=== PATIENT | female | born 1960 | race Caucasian/White ===

== ENCOUNTER 2022-05-14 11:29 | Inpatient (IN) | payer MEDICARE, MEDICAID ==
[~2022-05-14] VITALS: Ht 160 cm; Wt 78.9 kg
[~2022-05-14 11:29] MED LIST: CLON0.5T4 PO; DIVA500T51; LEVO50TA8; LIP40 PO; LITHTAB PO; METF-414 PO; METR500T MT; NYST15CR33 TP; ZIPR40CA2 PO
[2022-05-14] MEDS ORDERED: VANCOMYCIN 1G PREMIX 200 ML IV ONE (12:15)
[2022-05-14] MEDS ORDERED: MEROPENEM 1,000 MG in SODIUM CHLORIDE 0.9% 100 ML IV ONE (12:15)
[2022-05-14] MEDS ORDERED: SODIUM CHLORIDE 0.9% 1000ML BAG (SEPSIS BOLUS) IV ONE (12:15)
[2022-05-14 13:13] LABS: BG BASE EXCESS -7.8 mmol/L (-2.0-2.0); BG CARBOXYHEMOGLOBIN 0.8 % (0.5-1.5); BG DEOXYHEMOGLOBIN 8.4 % (0.0-5.0); BG FRACTION INSPIRED OXYGEN 21; BG HCO3 ACT 14.8 mmol/L (22.0-26.0); BG METHEMOGLOBIN 0.4 % (0.0-1.5); BG OXYGEN SATURATION 91.5 % (92.0-98.5); BG OXYHEMOGLOBIN 90.4 % (94.0-97.0); BG PCO2 24.4 mmHg (35.0-45.0); BG PH 7.402 (7.350-7.450); BG PO2 59.2 mmHg (75.0-100.0); BG SAMPLE SITE RIGHT RADIAL; BG TOTAL HEMOGLOBIN 14.8 g/dL (12.0-18.0); BG VENT MODE ROOM AIR
[2022-05-14 13:18] LABS: HEMATOCRIT. 37.7 % (36.0-48.0); HEMOGLOBIN. 12.9 g/dL (12.0-16.0); MEAN CORPUSCULAR HEMOGLOBIN 31.2 pg (28.0-32.0); MEAN CORPUSCULAR VOLUME 90.9 fL (81.0-99.0); MEAN PLATELET VOLUME 10.6 fl (7.4-10.4); PLATELET 96 x1000/uL (130-400); RED BLOOD CELL COUNT 4.14 mill/uL (4.2-5.4); RED CELL DISTRIBUTION WIDTH 14.5 % (11.6-14.6)
[2022-05-14 13:21] LABS: CLARITY URINE CLOUDY (CLEAR); COLOR URINE DARK YELLOW (YELLOW); KETONES URINE TRACE (NEGATIVE); LEUKOCYTE ESTERASE URINE TRACE (NEGATIVE); NITRITE URINE NEGATIVE (NEGATIVE); OCCULT BLOOD URINE 3+ (NEGATIVE); PH URINE 5.5 (4.5-8.0); PROTEIN URINE 4+ (NEGATIVE)
[2022-05-14 13:30] LABS: INR 1.1; PROTHROMBIN TIME 12.2 sec (9.6-11.0)
[2022-05-14 13:54] LABS: PLATELET ESTIMATE DECREASED
[2022-05-14] MEDS ORDERED: ACETAMINOPHEN 325MG TABLET PO NR ×2 (14:45→16:45)
[2022-05-14 14:46] LABS: *AMPHETAMINES SCREEN URINE NEGATIVE (NEGATIVE); *BARBITURATES SCREEN URINE NEGATIVE (NEGATIVE); *BENZODIAZEPINES SCREEN URINE NEGATIVE (NEGATIVE); *COCAINE SCREEN URINE NEGATIVE (NEGATIVE); CANNABINOID URINE SCREEN PRESUMTIVE POSITIVE (NEGATIVE); METHADONE URINE SCREEN NEGATIVE (NEGATIVE); OPIATES URINE SCREEN NEGATIVE (NEGATIVE); PHENCYCLIDINE URINE SCREEN NEGATIVE (NEGATIVE)
[2022-05-14] MEDS ORDERED: DOXYCYCLINE 100MG in DEXTROSE 5% WATER 100ML IV NR (15:15)
[2022-05-14] MEDS ORDERED: DOXYCYCLINE HYCLATE 100 MG/VIAL IV ONE (15:15)
[2022-05-14] MEDS: SODIUM CHLORIDE 0.9% 1,000 ML IV SCH (17:15)
[2022-05-14] MEDS ORDERED: KETOROLAC 15MG/ML VIAL IV PRN (17:15)
[2022-05-14] MEDS ORDERED: ZOLPIDEM TARTRATE 5MG TABLET PO PRN (17:15)
[2022-05-14] MEDS ORDERED: DEXTROSE 50% WATER 50ML SYRINGE IV PRN (17:15)
[2022-05-14] MEDS ORDERED: NOREPINEPHRINE 8 MG in DEXT 5% WATER 242 ML IV PRN (17:15)
[2022-05-14] MEDS ORDERED: ENOXAPARIN 40MG/0.4ML SYR SUBCUT SCH (17:15)
[2022-05-14] MEDS ORDERED: GUAIFENESIN 200MG/10ML SUGAR FREE UDC PO PRN (17:15)
[2022-05-14] MEDS ORDERED: DOCUSATE SODIUM 100MG CAPSULE PO PRN (17:15)
[2022-05-14] MEDS ORDERED: CLONIDINE 0.1MG TABLET PO PRN (17:15)
[2022-05-14] MEDS ORDERED: IPRATROPIUM/ALBUTEROL 0.5-3(2.5)MG/3ML NEB NEB PRN (17:15)
[2022-05-14] MEDS ORDERED: ONDANSETRON HCL 4MG/2ML INJ IV PRN (17:15)
[2022-05-14] MEDS ORDERED: MAGNESIUM/ALUMINUM HYDROXIDE/SIMETHICONE 30ML UDC PO PRN (17:15)
[2022-05-14] MEDS ORDERED: NITROGLYCERIN 0.4MG TABLET SL SL PRN (17:15)
[2022-05-14 17:56] LABS: CHLORIDE 105 mEq/L (98-107)
[2022-05-14 18:16] LABS: ETHANOL BLOOD < 10 mg/dL; HDL CHOLESTEROL 11 mg/dL (40-59); LDL CHOLESTEROL 43 mg/dL (5-100); T4 FREE 1.12 ng/dL (0.76-1.46); TOTAL IRON BINDING CAPACITY 144 ug/dL (250-450)
[2022-05-14 18:27] LABS: BETA HYDROXYBUTYRATE 3.3 mMol/L (0.0-0.3)
[2022-05-14 18:54] LABS: FOLIC ACID (FOLATE) SERUM > 20.00 ng/mL (>5.38); VITAMIN B12 SERUM > 2000.0 pg/mL (211-911)
[2022-05-14 19:02] LABS: CREATINE KINASE 19118 IU/L (26-192)
[2022-05-14] MEDS ORDERED: VANCOMYCIN 500MG PREMIX 100 ML IV NR (19:15)
[2022-05-14] MEDS: INSULIN LISPRO 100 UNITS/ML SUBCUT SCH (20:46)
[2022-05-14] MEDS: BLOOD SUGAR DIAGNOSTIC STRIP TEST SCH (21:00)
[2022-05-14] MEDS: ASCORBIC ACID 500 MG TABLET PO SCH (21:30)
[2022-05-14] MEDS: ENOXAPARIN 30MG/0.3ML SYR SUBCUT SCH (21:30)
[2022-05-14] MEDS: FAMOTIDINE 20MG TABLET PO SCH (21:30)
[2022-05-14] MEDS: MEROPENEM 1,000 MG in SODIUM CHLORIDE 0.9% 100 ML IV SCH (21:46)
[2022-05-14] MEDS ORDERED: KCL 20MEQ/100ML PREMIX 100 ML IV NR (22:30)
[2022-05-14 23:21] VITALS: BP 141/62
[2022-05-14 23:30] VITALS: BP 141/62
[2022-05-15] VITALS (12 sets, daily range): BP systolic 101–159; BP diastolic 47–71
[2022-05-15] MEDS: INSULIN LISPRO 100 UNITS/ML SUBCUT SCH ×5 (00:09→20:53)
[2022-05-15] MEDS: INSULIN GLARGINE 100 UNITS/ML SUBCUT SCH ×2 (00:09→22:36)
[2022-05-15] MEDS: SODIUM CHLORIDE 0.9% 1,000 ML IV SCH ×3 (00:10→18:11)
[2022-05-15] MEDS: KCL 20MEQ/100ML PREMIX 100 ML IV NR ×2 (00:11→01:51)
[2022-05-15 02:55] LABS: CREATINE KINASE MB FRACTION 19.1 ng/mL (0.5-3.6)
[2022-05-15] MEDS: ACETAMINOPHEN 325MG TABLET PO PRN ×2 (05:19→20:54)
[2022-05-15 06:07] LABS: CHLORIDE 112 mEq/L (98-107)
[2022-05-15 06:36] LABS: CREATINE KINASE MB FRACTION 14.1 ng/mL (0.5-3.6); PHOSPHORUS 3.3 mg/dL (2.5-4.9)
[2022-05-15] MEDS: BLOOD SUGAR DIAGNOSTIC STRIP TEST SCH ×4 (07:30→20:53)
[2022-05-15 07:36] LABS: HEMATOCRIT. 34.6 % (36.0-48.0); MEAN CORPUSCULAR HEMOGLOBIN 31.8 pg (28.0-32.0); MEAN CORPUSCULAR VOLUME 91.9 fL (81.0-99.0); RED BLOOD CELL COUNT 3.76 mill/uL (4.2-5.4); RED CELL DISTRIBUTION WIDTH 14.8 % (11.6-14.6)
[2022-05-15 07:48] LABS: CREATINE KINASE 17445 IU/L (26-192)
[2022-05-15] MEDS ORDERED: ALBUTEROL (0.083%) 2.5MG/3ML NEB HHN PRN (08:30)
[2022-05-15] MEDS ORDERED: IPRATROPIUM BROMIDE (0.02%) 0.5MG/2.5ML NEB HHN PRN (08:30)
[2022-05-15] MEDS: ASPIRIN 325MG EC TABLET PO SCH (08:50)
[2022-05-15] MEDS: ASCORBIC ACID 500 MG TABLET PO SCH ×2 (08:50→20:53)
[2022-05-15] MEDS: ZINC SULFATE 220 MG ( 50 ) CAPSULE PO SCH (08:50)
[2022-05-15 08:57] LABS: BG BASE EXCESS -9.7 mmol/L (-2.0-2.0); BG CARBOXYHEMOGLOBIN 0.3 % (0.5-1.5); BG DEOXYHEMOGLOBIN 5.1 % (0.0-5.0); BG FRACTION INSPIRED OXYGEN 34; BG HCO3 ACT 14.6 mmol/L (22.0-26.0); BG METHEMOGLOBIN 0.1 % (0.0-1.5); BG OXYGEN SATURATION 94.9 % (92.0-98.5); BG OXYHEMOGLOBIN 94.5 % (94.0-97.0); BG PCO2 27.4 mmHg (35.0-45.0); BG PH 7.343 (7.350-7.450); BG PO2 78.5 mmHg (75.0-100.0); BG SAMPLE SITE RIGHT RADIAL; BG TOTAL HEMOGLOBIN 12.1 g/dL (12.0-18.0); BG VENT MODE NASAL CANNULA
[2022-05-15] MEDS: MEROPENEM 1,000 MG in SODIUM CHLORIDE 0.9% 100 ML IV SCH ×2 (11:28→22:35)
[2022-05-15 18:07] LABS: MEAN PLATELET VOLUME 13.1 fl (7.4-10.4); PLATELET 109 x1000/uL (130-400); PLATELET ESTIMATE DECREASED
[2022-05-15] MEDS: FAMOTIDINE 20MG TABLET PO SCH (20:53)
[2022-05-15] MEDS: ENOXAPARIN 30MG/0.3ML SYR SUBCUT SCH (20:53)
[2022-05-16] VITALS (12 sets, daily range): BP systolic 81–148; BP diastolic 35–71
[2022-05-16] MEDS: SODIUM CHLORIDE 0.9% 1,000 ML IV SCH (00:05)
[2022-05-16] MEDS: BLOOD SUGAR DIAGNOSTIC STRIP TEST SCH ×4 (07:30→20:50)
[2022-05-16 07:58] LABS: HEMATOCRIT. 31.7 % (36.0-48.0); HEMOGLOBIN. 10.9 g/dL (12.0-16.0); MEAN CORPUSCULAR HEMOGLOBIN 31.9 pg (28.0-32.0); MEAN CORPUSCULAR VOLUME 92.5 fL (81.0-99.0); MEAN PLATELET VOLUME 10.6 fl (7.4-10.4); PLATELET 93 x1000/uL (130-400); RED BLOOD CELL COUNT 3.42 mill/uL (4.2-5.4); RED CELL DISTRIBUTION WIDTH 15.4 % (11.6-14.6)
[2022-05-16] MEDS: INSULIN LISPRO 100 UNITS/ML SUBCUT SCH ×4 (08:00→20:51)
[2022-05-16 08:37] LABS: CHLORIDE 112 mEq/L (98-107)
[2022-05-16 09:28] LABS: PHOSPHORUS 4.7 mg/dL (2.5-4.9)
[2022-05-16] MEDS ORDERED: FUROSEMIDE 40MG/4ML VIAL IVP NR (09:45)
[2022-05-16 09:59] LABS: CREATINE KINASE 16885 IU/L (26-192)
[2022-05-16] MEDS: ASCORBIC ACID 500 MG TABLET PO SCH ×2 (10:25→20:50)
[2022-05-16] MEDS: MEROPENEM 1,000 MG in SODIUM CHLORIDE 0.9% 100 ML IV SCH ×2 (10:25→20:49)
[2022-05-16] MEDS: ASPIRIN 325MG EC TABLET PO SCH (10:25)
[2022-05-16] MEDS: ZINC SULFATE 220 MG ( 50 ) CAPSULE PO SCH (10:25)
[2022-05-16] MEDS ORDERED: VANCOMYCIN 1G PREMIX 200 ML IV NR (12:00)
[2022-05-16] MEDS: SODIUM BICARBONATE 75 MEQ in SODIUM CHLORIDE 0.45% 1,000 ML IV SCH ×2 (13:16→22:13)
[2022-05-16 20:43] LABS: PLATELET ESTIMATE DECREASED
[2022-05-16] MEDS: ENOXAPARIN 30MG/0.3ML SYR SUBCUT SCH (20:49)
[2022-05-16] MEDS: FAMOTIDINE 20MG TABLET PO SCH (20:50)
[2022-05-16] MEDS: ACETAMINOPHEN 325MG TABLET PO PRN (20:50)
[2022-05-16 21:33] LABS: BG BASE EXCESS -6.3 mmol/L (-2.0-2.0); BG CARBOXYHEMOGLOBIN 0.3 % (0.5-1.5); BG DEOXYHEMOGLOBIN 7.1 % (0.0-5.0); BG FRACTION INSPIRED OXYGEN 36; BG METHEMOGLOBIN 0.5 % (0.0-1.5); BG OXYGEN SATURATION 92.8 % (92.0-98.5); BG OXYHEMOGLOBIN 92.1 % (94.0-97.0); BG PH 7.416 (7.350-7.450); BG PO2 64.6 mmHg (75.0-100.0); BG SAMPLE SITE RIGHT RADIAL; BG TOTAL HEMOGLOBIN 11.5 g/dL (12.0-18.0); BG VENT MODE NASAL CANNULA
[2022-05-16] MEDS: INSULIN GLARGINE 100 UNITS/ML SUBCUT SCH (22:18)
[2022-05-17] VITALS (55 sets, daily range): BP systolic 72–152; BP diastolic 48–135
[2022-05-17] MEDS: IPRATROPIUM BROMIDE (0.02%) 0.5MG/2.5ML NEB HHN SCH ×2 (01:03→08:46)
[2022-05-17] MEDS: ACETYLCYSTEINE 200MG/ML 20% VIAL 4ML INH SCH ×2 (01:04→08:46)
[2022-05-17] MEDS: BLOOD SUGAR DIAGNOSTIC STRIP TEST SCH ×4 (06:30→21:27)
[2022-05-17] MEDS: INSULIN LISPRO 100 UNITS/ML SUBCUT SCH ×4 (07:00→21:00)
[2022-05-17] MEDS: ACETAMINOPHEN 325MG TABLET PO PRN ×4 (08:21→22:33)
[2022-05-17] MEDS: ASCORBIC ACID 500 MG TABLET PO SCH ×2 (08:25→21:25)
[2022-05-17] MEDS: ZINC SULFATE 220 MG ( 50 ) CAPSULE PO SCH (08:25)
[2022-05-17] MEDS: ASPIRIN 325MG EC TABLET PO SCH (08:25)
[2022-05-17] MEDS: MEROPENEM 1,000 MG in SODIUM CHLORIDE 0.9% 100 ML IV SCH ×4 (09:28→21:31)
[2022-05-17 13:04] LABS: BG BASE EXCESS -5.3 mmol/L (-2.0-2.0); BG CARBOXYHEMOGLOBIN 0.3 % (0.5-1.5); BG DEOXYHEMOGLOBIN 7.6 % (0.0-5.0); BG FRACTION INSPIRED OXYGEN 36; BG HCO3 ACT 18.6 mmol/L (22.0-26.0); BG METHEMOGLOBIN 0.3 % (0.0-1.5); BG OXYGEN SATURATION 92.4 % (92.0-98.5); BG OXYHEMOGLOBIN 91.8 % (94.0-97.0); BG PCO2 31.1 mmHg (35.0-45.0); BG PH 7.395 (7.350-7.450); BG PO2 66.6 mmHg (75.0-100.0); BG SAMPLE SITE RIGHT RADIAL; BG TOTAL HEMOGLOBIN 11.6 g/dL (12.0-18.0); BG VENT MODE NASAL CANNULA
[2022-05-17] MEDS ORDERED: SODIUM CHLORIDE 10% FOR INH 15ML VIAL NEB INH NR (14:00)
[2022-05-17] MEDS ORDERED: IPRATROPIUM/ALBUTEROL 0.5-3(2.5)MG/3ML NEB HHN PRN ×2 (14:00→14:15)
[2022-05-17 15:54] LABS: BASOPHILS % 0.3 % (0.0-2.0); EOSINOPHILS % 0.1 % (0.0-5.0); HEMATOCRIT. 34.2 % (36.0-48.0); HEMOGLOBIN. 11.4 g/dL (12.0-16.0); MEAN CORPUSCULAR HEMOGLOBIN 31.5 pg (28.0-32.0); MEAN CORPUSCULAR VOLUME 94.3 fL (81.0-99.0); MEAN PLATELET VOLUME 9.7 fl (7.4-10.4); MONOCYTES % 1.8 % (2.0-8.0); NEUTROPHILS % 87.8 % (40.0-76.0); PLATELET 103 x1000/uL (130-400); RED BLOOD CELL COUNT 3.62 mill/uL (4.2-5.4); RED CELL DISTRIBUTION WIDTH 15.8 % (11.6-14.6)
[2022-05-17] MEDS: DOXYCYCLINE 100 MG in DEXT 5% WATER 100 ML IV SCH (15:59)
[2022-05-17] MEDS: ALBUTEROL (0.083%) 2.5MG/3ML NEB HHN SCH ×3 (16:08→23:52)
[2022-05-17] MEDS: ACETYLCYSTEINE 200MG/ML 20% VIAL 10ML INH SCH ×2 (16:08→23:52)
[2022-05-17 16:11] LABS: CHLORIDE 111 mEq/L (98-107)
[2022-05-17 16:18] LABS: PHOSPHORUS 3.1 mg/dL (2.5-4.9)
[2022-05-17] MEDS: SODIUM BICARBONATE 75 MEQ in SODIUM CHLORIDE 0.45% 1,000 ML IV SCH (16:42)
[2022-05-17] MEDS: FAMOTIDINE 20MG TABLET PO SCH (21:25)
[2022-05-17] MEDS: ENOXAPARIN 30MG/0.3ML SYR SUBCUT SCH (21:27)
[2022-05-17] MEDS: INSULIN GLARGINE 100 UNITS/ML SUBCUT SCH (21:28)
[2022-05-17] MEDS: MEROPENEM 500MG in NORMAL SALINE 50ML IV SCH (21:33)
[2022-05-18] VITALS (64 sets, daily range): BP systolic 81–158; BP diastolic 45–129
[2022-05-18] MEDS: ACETAMINOPHEN 325MG TABLET PO PRN ×3 (03:02→20:14)
[2022-05-18] MEDS: DOXYCYCLINE 100 MG in DEXT 5% WATER 100 ML IV SCH ×2 (03:02→14:28)
[2022-05-18] MEDS: ALBUTEROL (0.083%) 2.5MG/3ML NEB HHN SCH ×6 (03:52→23:54)
[2022-05-18 05:28] LABS: BASOPHILS % 0.2 % (0.0-2.0); EOSINOPHILS % 0.6 % (0.0-5.0); HEMATOCRIT. 28.1 % (36.0-48.0); HEMOGLOBIN. 9.6 g/dL (12.0-16.0); LYMPHOCYTES % 8.9 % (20.0-50.0); MEAN CORPUSCULAR HEMOGLOBIN 31.3 pg (28.0-32.0); MEAN PLATELET VOLUME 9.9 fl (7.4-10.4); MONOCYTES % 1.4 % (2.0-8.0); NEUTROPHILS % 88.9 % (40.0-76.0); PLATELET 117 x1000/uL (130-400); RED BLOOD CELL COUNT 3.06 mill/uL (4.2-5.4); RED CELL DISTRIBUTION WIDTH 15.2 % (11.6-14.6)
[2022-05-18 05:34] LABS: CHLORIDE 111 mEq/L (98-107)
[2022-05-18 05:49] LABS: PHOSPHORUS 3.1 mg/dL (2.5-4.9)
[2022-05-18] MEDS: BLOOD SUGAR DIAGNOSTIC STRIP TEST SCH ×4 (05:53→20:16)
[2022-05-18] MEDS: INSULIN LISPRO 100 UNITS/ML SUBCUT SCH ×4 (06:06→20:16)
[2022-05-18] MEDS: SODIUM BICARBONATE 75 MEQ in SODIUM CHLORIDE 0.45% 1,000 ML IV SCH ×3 (06:14→17:13)
[2022-05-18] MEDS: ASPIRIN 325MG EC TABLET PO SCH (08:40)
[2022-05-18] MEDS: MEROPENEM 500MG in NORMAL SALINE 50ML IV SCH ×2 (08:40→20:14)
[2022-05-18] MEDS: ASCORBIC ACID 500 MG TABLET PO SCH ×2 (08:40→20:15)
[2022-05-18] MEDS: ZINC SULFATE 220 MG ( 50 ) CAPSULE PO SCH (08:40)
[2022-05-18 09:07] LABS: BG BASE EXCESS -1.9 mmol/L (-2.0-2.0); BG CARBOXYHEMOGLOBIN 0.3 % (0.5-1.5); BG DEOXYHEMOGLOBIN 4.3 % (0.0-5.0); BG FRACTION INSPIRED OXYGEN 40; BG HCO3 ACT 21.9 mmol/L (22.0-26.0); BG METHEMOGLOBIN 0.4 % (0.0-1.5); BG OXYGEN SATURATION 95.7 % (92.0-98.5); BG PCO2 33.7 mmHg (35.0-45.0); BG PH 7.431 (7.350-7.450); BG PO2 80.9 mmHg (75.0-100.0); BG SAMPLE SITE RIGHT RADIAL; BG TOTAL HEMOGLOBIN 9.4 g/dL (12.0-18.0); BG VENT MODE COOL AEROSOL
[2022-05-18 10:06] LABS: IMMUNOGLOBULIN A 156 mg/dL (87-352); IMMUNOGLOBULIN G 718 mg/dL (586-1602); IMMUNOGLOBULIN M 115 mg/dL (26-217)
[2022-05-18] MEDS ORDERED: POTASSIUM CHLORIDE 20MEQ TABLET SR PO NR (20:15)
[2022-05-18] MEDS: FAMOTIDINE 20MG TABLET PO SCH (20:15)
[2022-05-18] MEDS: ENOXAPARIN 30MG/0.3ML SYR SUBCUT SCH (20:15)
[2022-05-18] MEDS: INSULIN GLARGINE 100 UNITS/ML SUBCUT SCH (21:34)
[2022-05-18] MEDS: ACETYLCYSTEINE 200MG/ML 20% VIAL 10ML INH SCH (23:53)
[2022-05-19] VITALS (51 sets, daily range): BP systolic 98–154; BP diastolic 49–97
[2022-05-19] MEDS: DOXYCYCLINE 100 MG in DEXT 5% WATER 100 ML IV SCH ×2 (01:30→15:18)
[2022-05-19] MEDS: SODIUM BICARBONATE 75 MEQ in SODIUM CHLORIDE 0.45% 1,000 ML IV SCH (02:52)
[2022-05-19] MEDS: ACETAMINOPHEN 325MG TABLET PO PRN (03:57)
[2022-05-19] MEDS: ALBUTEROL (0.083%) 2.5MG/3ML NEB HHN SCH ×5 (04:13→20:00)
[2022-05-19 05:50] LABS: BASOPHILS % 0.2 % (0.0-2.0); EOSINOPHILS % 2.8 % (0.0-5.0); HEMATOCRIT. 33.8 % (36.0-48.0); HEMOGLOBIN. 11.3 g/dL (12.0-16.0); MEAN CORPUSCULAR HEMOGLOBIN 31.8 pg (28.0-32.0); MEAN CORPUSCULAR VOLUME 95.3 fL (81.0-99.0); MONOCYTES % 2.4 % (2.0-8.0); NEUTROPHILS % 83.6 % (40.0-76.0); RED BLOOD CELL COUNT 3.55 mill/uL (4.2-5.4)
[2022-05-19] MEDS: BLOOD SUGAR DIAGNOSTIC STRIP TEST SCH ×4 (06:30→21:00)
[2022-05-19 06:53] LABS: PHOSPHORUS 2.6 mg/dL (2.5-4.9)
[2022-05-19] MEDS: INSULIN LISPRO 100 UNITS/ML SUBCUT SCH ×4 (07:00→21:06)
[2022-05-19] MEDS: ACETYLCYSTEINE 200MG/ML 20% VIAL 10ML INH SCH ×3 (08:13→22:00)
[2022-05-19] MEDS: MEROPENEM 500MG in NORMAL SALINE 50ML IV SCH ×2 (09:32→21:07)
[2022-05-19] MEDS: ASCORBIC ACID 500 MG TABLET PO SCH ×2 (09:32→21:07)
[2022-05-19] MEDS: ASPIRIN 325MG EC TABLET PO SCH (09:33)
[2022-05-19] MEDS: ZINC SULFATE 220 MG ( 50 ) CAPSULE PO SCH (09:33)
[2022-05-19 11:34] LABS: MEAN PLATELET VOLUME 11.3 fl (7.4-10.4); PLATELET 131 x1000/uL (130-400)
[2022-05-19 11:35] LABS: PLATELET ESTIMATE SLIGHTLY DECREASED
[2022-05-19] MEDS: SODIUM CHLORIDE 0.9% 1,000 ML IV SCH (15:21)
[2022-05-19] MEDS: FAMOTIDINE 20MG TABLET PO SCH (21:07)
[2022-05-19] MEDS: ENOXAPARIN 30MG/0.3ML SYR SUBCUT SCH (21:08)
[2022-05-19] MEDS: INSULIN GLARGINE 100 UNITS/ML SUBCUT SCH (23:17)
[2022-05-20] VITALS (50 sets, daily range): BP systolic 94–184; BP diastolic 46–141
[2022-05-20] MEDS: SODIUM CHLORIDE 0.9% 1,000 ML IV SCH (00:02)
[2022-05-20] MEDS: ALBUTEROL (0.083%) 2.5MG/3ML NEB HHN SCH ×7 (00:21→23:58)
[2022-05-20] MEDS: ACETAMINOPHEN 325MG TABLET PO PRN ×2 (00:43→10:33)
[2022-05-20] MEDS: DOXYCYCLINE 100 MG in DEXT 5% WATER 100 ML IV SCH ×2 (02:16→15:18)
[2022-05-20 05:26] LABS: BASOPHILS % 0.4 % (0.0-2.0); EOSINOPHILS % 2.7 % (0.0-5.0); HEMATOCRIT. 29.5 % (36.0-48.0); HEMOGLOBIN. 10.1 g/dL (12.0-16.0); LYMPHOCYTES % 11.9 % (20.0-50.0); MEAN CORPUSCULAR HEMOGLOBIN 31.6 pg (28.0-32.0); MEAN CORPUSCULAR VOLUME 92.4 fL (81.0-99.0); MEAN PLATELET VOLUME 10.1 fl (7.4-10.4); MONOCYTES % 4.2 % (2.0-8.0); NEUTROPHILS % 80.8 % (40.0-76.0); PLATELET 130 x1000/uL (130-400); RED BLOOD CELL COUNT 3.19 mill/uL (4.2-5.4); RED CELL DISTRIBUTION WIDTH 15.1 % (11.6-14.6)
[2022-05-20] MEDS: BLOOD SUGAR DIAGNOSTIC STRIP TEST SCH ×4 (05:31→20:13)
[2022-05-20 05:37] LABS: INR 1.1; PROTHROMBIN TIME 11.3 sec (9.6-11.0)
[2022-05-20 05:55] LABS: CHLORIDE 113 mEq/L (98-107)
[2022-05-20 06:18] LABS: PHOSPHORUS 1.4 mg/dL (2.5-4.9)
[2022-05-20] MEDS: INSULIN LISPRO 100 UNITS/ML SUBCUT SCH ×4 (06:18→20:26)
[2022-05-20 07:17] LABS: CREATINE KINASE 1398 IU/L (26-192)
[2022-05-20] MEDS: ACETYLCYSTEINE 200MG/ML 20% VIAL 10ML INH SCH ×3 (07:43→23:58)
[2022-05-20] MEDS: ZIPRASIDONE HCL 40MG CAPSULE PO SCH ×2 (08:20→17:45)
[2022-05-20 08:47] LABS: BG CARBOXYHEMOGLOBIN 0.1 % (0.5-1.5); BG DEOXYHEMOGLOBIN 9.9 % (0.0-5.0); BG FRACTION INSPIRED OXYGEN 21; BG HCO3 ACT 25.5 mmol/L (22.0-26.0); BG METHEMOGLOBIN 0.3 % (0.0-1.5); BG OXYGEN SATURATION 90.1 % (92.0-98.5); BG OXYHEMOGLOBIN 89.7 % (94.0-97.0); BG PCO2 35.5 mmHg (35.0-45.0); BG PH 7.474 (7.350-7.450); BG PO2 56.3 mmHg (75.0-100.0); BG SAMPLE SITE RIGHT RADIAL; BG TOTAL HEMOGLOBIN 10.6 g/dL (12.0-18.0); BG VENT MODE ROOM AIR
[2022-05-20] MEDS ORDERED: POTASSIUM CHLORIDE 20MEQ TABLET SR PO SCH (09:00)
[2022-05-20] MEDS ORDERED: FENTANYL CITRATE/PF 50MCG/ML 2ML VIAL IV NR (10:30)
[2022-05-20] MEDS ORDERED: MIDAZOLAM HCL 2 MG/2 ML VIAL IV NR (10:30)
[2022-05-20] MEDS ORDERED: LIDOCAINE HCL 2% JELLY 5ML MM NR (10:30)
[2022-05-20] MEDS ORDERED: VISCOUS LIDOCAINE 2% 15 ML UDC MM NR (10:30)
[2022-05-20] MEDS: SODIUM CHLORIDE 0.45% 1,000 ML IV SCH ×2 (10:32→23:14)
[2022-05-20] MEDS: ZINC SULFATE 220 MG ( 50 ) CAPSULE PO SCH (10:32)
[2022-05-20] MEDS: ASCORBIC ACID 500 MG TABLET PO SCH ×2 (10:32→20:12)
[2022-05-20] MEDS ORDERED: POTASSIUM PHOS,M-BASIC-D-BASIC 30 MMOL in DEXT 5% WATER 500 ML IV SCH (11:00)
[2022-05-20] MEDS ORDERED: SODIUM CHLORIDE 3% FOR INH 4ML UD NEB INH SCH (13:00)
[2022-05-20] MEDS ORDERED: ENOXAPARIN 40MG/0.4ML SYR SUBCUT SCH (20:00)
[2022-05-20] MEDS: FAMOTIDINE 20MG TABLET PO SCH (20:12)
[2022-05-20] MEDS: INSULIN GLARGINE 100 UNITS/ML SUBCUT SCH (22:48)
[2022-05-21] VITALS (18 sets, daily range): BP systolic 121–163; BP diastolic 58–111
[2022-05-21] MEDS: DOXYCYCLINE 100 MG in DEXT 5% WATER 100 ML IV SCH (01:40)
[2022-05-21] MEDS: ALBUTEROL (0.083%) 2.5MG/3ML NEB HHN SCH ×3 (03:41→14:04)
[2022-05-21 05:42] LABS: BASOPHILS % 0.5 % (0.0-2.0); EOSINOPHILS % 2.2 % (0.0-5.0); HEMATOCRIT. 28.3 % (36.0-48.0); HEMOGLOBIN. 9.6 g/dL (12.0-16.0); LYMPHOCYTES % 11.3 % (20.0-50.0); MEAN CORPUSCULAR HEMOGLOBIN 31.7 pg (28.0-32.0); MEAN CORPUSCULAR VOLUME 93.4 fL (81.0-99.0); MEAN PLATELET VOLUME 10.1 fl (7.4-10.4); MONOCYTES % 6.4 % (2.0-8.0); NEUTROPHILS % 79.6 % (40.0-76.0); PLATELET 134 x1000/uL (130-400); RED BLOOD CELL COUNT 3.03 mill/uL (4.2-5.4); RED CELL DISTRIBUTION WIDTH 15.9 % (11.6-14.6)
[2022-05-21 06:08] LABS: PHOSPHORUS 3.4 mg/dL (2.5-4.9)
[2022-05-21] MEDS: INSULIN LISPRO 100 UNITS/ML SUBCUT SCH (06:17)
[2022-05-21] MEDS: BLOOD SUGAR DIAGNOSTIC STRIP TEST SCH (06:17)
[2022-05-21] MEDS: SODIUM CHLORIDE 0.45% 1,000 ML IV SCH (06:18)
[2022-05-21] MEDS: ZIPRASIDONE HCL 40MG CAPSULE PO SCH (06:19)
[2022-05-21] MEDS: ACETYLCYSTEINE 200MG/ML 20% VIAL 10ML INH SCH ×2 (07:53→14:04)
[2022-05-21] MEDS: ASCORBIC ACID 500 MG TABLET PO SCH (09:55)
[2022-05-21] MEDS: ZINC SULFATE 220 MG ( 50 ) CAPSULE PO SCH (09:56)
[2022-05-21] MEDS ORDERED: DEXTROSE 5% WATER 1,000 ML IV SCH (13:00)
[2022-05-21] MEDS ORDERED: MAGNESIUM 2 G PREMIX 50 ML IV SCH (14:00)
[2022-05-22 08:11] LABS: QFT MITOGEN VALUE 0.81 IU/mL (.); QFT TB GOLD PLUS Negative (Negative)
== END 2022-05-21 18:00 | disposition left against medical advice (07) | DRG 871 ==
LOC: ER 11:29 → MICUSO 16:32 → SUPCPDRO 17:02 → EDBEDREQ 17:54 → 5EST 23:30 → MICUSO 05-17 03:12
PROVIDERS: ADMIT Internal Medicine; ATTEND Internal Medicine
PROC: 5A09357 Assistance with Respiratory Ventilation, Less than 24 Consecutive Hours, Continuous Positive Airway Pressure (ICD-10-PCS; principal; 2022-05-20)
DX: A41.9 Sepsis, unspecified organism (principal); E11.10 Type 2 diabetes mellitus with ketoacidosis without coma; R65.21 Severe sepsis with septic shock; J18.9 Pneumonia, unspecified organism; I21.A1 Myocardial infarction type 2; N17.0 Acute kidney failure with tubular necrosis; E43 Unspecified severe protein-calorie malnutrition; J96.01 Acute respiratory failure with hypoxia; G92.8 Other toxic encephalopathy; M62.82 Rhabdomyolysis; N39.0 Urinary tract infection, site not specified; J44.0 Chronic obstructive pulmonary disease with (acute) lower respiratory infection; K76.0 Fatty (change of) liver, not elsewhere classified; E87.6 Hypokalemia; E03.9 Hypothyroidism, unspecified; D69.6 Thrombocytopenia, unspecified; Z20.822 Contact with and (suspected) exposure to COVID-19; E78.00 Pure hypercholesterolemia, unspecified; F17.200 Nicotine dependence, unspecified, uncomplicated; F20.9 Schizophrenia, unspecified; F31.9 Bipolar disorder, unspecified; N20.0 Calculus of kidney; E88.09 Other disorders of plasma-protein metabolism, not elsewhere classified; Z53.29 Procedure and treatment not carried out because of patient's decision for other reasons; Z79.4 Long term (current) use of insulin; Z82.49 Family history of ischemic heart disease and other diseases of the circulatory system; Z90.49 Acquired absence of other specified parts of digestive tract; Z87.442 Personal history of urinary calculi; Z88.0 Allergy status to penicillin; Z88.2 Allergy status to sulfonamides; Z88.5 Allergy status to narcotic agent
CPT/HCPCS: 36415; 36600; 71045; 71250; 74176; 76770; 80048; 80053; 80061; 80202; 80305; 80320; 81003; 82010; 82375; 82550; 82553; 82607; 82746; 82784; 82805; 82962; 83036; 83540; 83550; 83605; 83735; 83880; 83930; 84100; 84145; 84439; 84443; 84484; 85025; 86334; 86480; 86635; 87070; 87116; 87426; 87449; 87529; 87804; 93306; 93970; 94640; 94660; 94667; 97162; 99291; A6261; C9803; J1650; J1815; J1940; J2185; J2405; J3370; J3475; J3480; J3490; J7030; J7050; J7060; J7070; J7131; J7608; G0480